=== PATIENT | male | born 1995 | race Caucasian/White ===

== ENCOUNTER 2024-12-19 16:49 | Emergency (ER) | payer OTHER, SELFPAY ==
[2024-12-19 16:51] VITALS: BP 140/85
[2024-12-19 17:01] LABS: % Basophils 0.6 % (0-2); % Eosinophils 0.9 % (0-6); % Immature Granulocytes 0.3 % (0-0.5); % Lymphocytes 31.7 % (20.5-51.1); % Monocytes 8.4 % (1.7-9.3); % Neutrophils 58.1 % (42.2-75.2); Absolute Eosinophils 0.1 10^3/uL (0-0.7); Absolute Lymphocytes 2.1 10^3/uL (1.2-3.4); Absolute Monocytes 0.6 10^3/uL (0.1-0.6); Absolute Neutrophils 3.8 10^3/uL (1.4-6.5); Hematocrit 45.5 % (39.0-52.0); Hemoglobin 16.6 g/dL (13.0-18.0); Mean Corp Hgb Conc. 36.5 g/dL (33.0-37.0); Mean Corpuscular Hgb 30.7 pg (27.0-31.0); Mean Corpuscular Volume 84.3 fL (80.0-94.0); Mean Platelet Volume 10.1 fL (7.4-10.4); Nucleated Red Blood Cells % 0 % (-); Platelet Count 221 10^3/uL (130-400); Red Cell Dist. Width 11.3 % (11.5-14.5); White Blood Cell Count 6.5 10^3/uL (4.8-10.8)
[2024-12-19 17:25] LABS: ALT (SGPT) 32 U/L (0-50); AST (SGOT) 24 U/L (17-59); Albumin 5.1 g/dl (3.5-5.0); Alkaline Phosphatase 65 U/L (38-126); Blood Urea Nitrogen 16 mg/dl (9-20); Calcium 10.1 mg/dl (8.4-10.2); Carbon Dioxide 25 mmol/L (22-30); Chloride 102 mmol/L (98-107); Glucose 103 mg/dl (70-99); Potassium 4.3 mmol/L (3.5-5.1); Sodium 137 mmol/L (135-145); Total Bilirubin 1.1 mg/dl (0.2-1.3); Total Protein 7.6 g/dl (6.3-8.2); eGFR > 60.00
[2024-12-19 17:30] LABS: Troponin I < 0.012 ng/ml
--- NOTE | 2024-12-19 18:25 | ED.GENMED ---
History of Present Illness
General
Chief Complaint: Dizziness
Source: patient and family
Exam Limitations: none
Time Seen by Provider: 12/19/24 18:09
History of Present Illness
History of Present Illness:
29yoM with no significant past medical history presenting with his mother for evaluation of multiple complaints. His primary concern is dizziness which has been intermittent for the past week. He describes the dizziness as a 'euphoric sensation'
and feeling like he is intoxicated. Symptoms are intermittent and seem to come on randomly. Symptoms can last several hours at a time. He denies any lightheadedness or vertiginous symptoms. He has also been having intermittent headaches for
several weeks, diarrhea, intermittent pinching left upper abdominal pain, as well as joint pains. Patient admits to feeling depressed but denies any suicidal ideations and is not interested in speaking with crisis at this time. He is feeling very
anxious about his health. Family requesting labs including babesiosis testing and ESR/CRP.
Phy Exam
General Physical Exam
General Presentation: well appearing and no apparent distress
General age: appears stated age
General Skin: warm and dry
General Habitus: normal
General Mental: alert
ENT Exam
ENT Exam: TM's normal and normocephalic
Eye Exam
Eye Exam: PERRL and EOMI
Cardiovascular Exam
Cardiovascular Exam: regular rate/rhythm and no murmur
Pulmonary Exam
Pulmonary Exam: lungs clear, no respiratory distress, no rales, no crackles, no rhonchi and no wheezing
Gastrointestinal Exam
Gastrointestinal Exam: non tender, soft and non distended
Neurological Exam
Neurological Exam: alert, CN II-XII intact and cerebellum intact (Normal finger to nose and heel to resendiz bilaterally)
Claudette Coma Scale
Eye Opening: Spontaneous
Verbal Response: Oriented
Motor Response: Obeys Commands
GCS Total Score: 15
Skin Exam
Skin Exam: normal color and warm/dry
Psychiatric Exam
Psychiatric Exam: normal mood/affect
Course
Orders/Labs/Results
Orders:
Orders
12/19/24 16:51
EKG [Electrocardiogram (*1)] Urgent
Reason for Study: Vertigo / Dizzy
EKG- Treatment ONCE
12/19/24 16:56
C-Reactive Protein Urgent
Comment: ADD ON
Complete Blood Count/With Diff Urgent
Comprehensive Metabolic Panel Urgent
Erythrocyte Sed Rate Urgent
Comment: ADD ON
Lipase Urgent
TSH Urgent
Comment: ADD ON
Troponin I Urgent
12/19/24 18:23
0.9% Sodium Chloride 1000 ml [Nss] 1,000 ml IV BOLUS
US Abdomen Complete/Upper Urgent
Comment:
Reason For Exam: LUQ pain
12/19/24 18:24
Add On- LAB Urgent
Tests Added?: ESR, CRP, lipase, TSH
CT Head W/o Iv Contrast Urgent
Comment:
Reason For Exam: SILVA, dizziness
12/19/24 18:46
Babesia microti Abs, IgG/IgM [S] Urgent
Lyme Progressive Urgent
Babesia Smear [Blood Parasites] Urgent
ANA M Source: Blood/Venous
Specimen Description:
Abnormal Lab Results
12/19/24
16:56
RDW 11.3 L %
(11.5-14.5)
Glucose 103 H mg/dl
(70-99)
Albumin 5.1 H g/dl
(3.5-5.0)
12/19/24 16:56
12/19/24 16:56
Vital Signs
Initial and Last Documented VS:
Initial Vital Signs
Temp Pulse Resp BP Pulse Ox
98.8 F 79 20 140/85 99
12/19/24 16:51 12/19/24 16:51 12/19/24 16:51 12/19/24 16:51 12/19/24 16:51
Last Documented Vital Signs
Temp Pulse Resp BP Pulse Ox
98.8 F 81 18 114/68 98
12/19/24 16:51 12/19/24 20:11 12/19/24 20:11 12/19/24 20:11 12/19/24 20:11
MDM/Problems Addressed
Differential Diagnosis Includes:
29yoM here with multiple symptoms. Feeling dizzy intermittent x 1 week which feels like a euphoric sensation. Also having headaches, diarrhea, joint pains, depression, pinching LUQ pain. VSS. He is well appearing with a reassuring exam. Differential
diagnosis includes but is not limited to: nonspecific dizziness, dehydration, electrolyte abnormality, thyroid dysfunction, anxiety
Initial ED plan: Cardiac labs and EKG obtained in triage. EKG shows NSR without ischemic changes and troponin WNL. Family requesting multiple labs including ESR/CRP and Babesiosis testing which was ordered. Will also check TSH, Lyme panel, upper
abdominal ultrasound, and CT head. IV fluid bolus.
*EKG
Interpreted by ED Provider?: Yes
EKG Intrepretation Date: 12/19/24
Heart Rate: 69
Rate: normal
Rhythm: sinus
[place]: normal axis
Interval: normal interval
QRS Pattern: normal QRS
Ischemia: no ischemia
*Critical Care Note
Total Time (30-74mins, 75-104mins- exclusive of procedures): Not Applicable
Update Note
Update Note:
ESR and CRP both normal. TSH within normal limits. Upper abdominal ultrasound is normal and CT head is negative for acute findings. Patient is stable for discharge. Constellation of symptoms are vague, unclear etiology. He has an appt scheduled with
his PCP later this month. ED return precautions discussed. He was discharged in stable condition.
ED Attending Note
-
Portions of this chart may have been created with voice recognition software.� Occasional wrong word or��sound alike� substitutions may have occurred due to the inherent limitations of voice recognition software.
Discharge Plan
Departure
Patient Disposition: Home (Routine Discharge)
Date of Disposition: 12/19/24
Time of Disposition: 20:19
Patient with high blood pressure during this ER visit?: No
Discharge Problem:
Nonspecific dizziness
Instructions: Dizziness
Referrals:
Margo Lr CRNP [Family Provider] -
Activity Restrictions/Additional Instructions:
Please follow-up with your family doctor. Return to the ER with any new or worsening symptoms.
Interventions
Interventions:
*General Assessment Last Done: 12/19/24 16:51
*Nursing Disposition Last Done: 12/19/24 20:32
ED- Neurological Assessment Last Done: 12/19/24 18:52
ED- Cardiac Assessment Last Done: 12/19/24 18:52
Discharge Date and Time
Discharge Date/Time: 12/19/24 20:33
Print Language: CANADIAN
[2024-12-19 18:43] VITALS: BMI 19.0
[2024-12-19 18:48] LABS: Erythrocyte Sed Rate 2 mm/hour (0-20)
[2024-12-19 18:57] LABS: C-Reactive Protein < 5.00 mg/L (0.0-10.00)
[2024-12-19] MEDS: NSS 1000 IV (19:06)
[2024-12-19 19:27] LABS: TSH 1.17 uIU/ml (0.47-4.68)
[2024-12-19 19:30] LABS: Lipase 116 U/L (23-300)
[2024-12-19 20:11] VITALS: BP 114/68
[2024-12-22 13:29] LABS: Lyme Antibody Screen, EIA Negative (Negative)
== END 2024-12-19 20:33 | disposition home or self-care (01) ==
LOC: EMR 16:49
PROVIDERS: Physician Assistant; EMERGENCY PHYSICIAN Student in an Organized Health Care Education/Training Program; FAMILY PHYSICIAN Nurse Practitioner Adult Health
DX: R42 Dizziness and giddiness (principal)
CPT/HCPCS: 99285; 70450; 76700; 80053; 83690; 84443; 84484; 85025; 85652; 86140; 86618; 86753; 87015; 87207; 93005